=== PATIENT | female | born 1995 | race Caucasian/White ===

== ENCOUNTER 2024-10-11 14:41 | Emergency (ER) | payer OTHER ==
[~2024-10-11] VITALS: Ht 167.6 cm; Wt 68.0 kg
[2024-10-11 14:55] VITALS: BP 137/85; TEMP 36.9; O2SAT 98
[2024-10-11 14:57] VITALS: PULSE 94; RESP 18; O2SAT 99
[2024-10-11] MEDS ORDERED: ENOXAPARIN 30MG/0.3ML SYR SUBCUT ONE (16:45)
== END 2024-10-11 16:41 | disposition home or self-care (01) ==
LOC: ER 14:41
DX: I47.10 Supraventricular tachycardia, unspecified (principal)
CPT/HCPCS: 99283; 96372; J1650; 99281